=== PATIENT | male | born 1975 ===

== ENCOUNTER 2018-04-01 20:44 | Emergency (ER) | payer OTHER ==
[2018-04-01 20:55] VITALS: TEMP 98.6
[2018-04-01] MEDS ORDERED: Morphine 4 MG/ML VIAL IVP ONE (22:09)
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
[2018-04-01] MEDS ORDERED: Sodium Chloride 0.9% 50 ML IV ONE (22:33)
[2018-04-01] MEDS ORDERED: Iohexol 300 100 ML IJ ONE (22:33)
[2018-04-01 22:39] LABS: BASO % 0.3 % (0.0-2.0); EOS # 0.1 K/uL (0.0-0.7); EOS % 0.6 % (0.0-4.0); HEMOGLOBIN 14.4 g/dL (12.0-18.0); LYMPH # 0.6 K/uL (1.0-4.3); LYMPH % 5.8 % (20.0-40.0); MEAN CELL VOLUME 81.1 fl (80.0-94.0); MEAN CORPUSCULAR HGB CONC 33.3 g/dL (33.0-37.0); MEAN PLATELET VOLUME 7.7 fl (7.2-11.7); MONO # 0.6 K/uL (0.0-0.8); MONO % 5.9 % (0.0-10.0); NEUT # 9.4 K/uL (1.8-7.0); NEUT % 87.4 % (50.0-75.0); PLATELET COUNT 277 K/uL (130-400); RBC 5.32 Mil/uL (4.40-5.90); RED CELL DISTRIBUTION WIDTH 14.3 % (11.5-14.5); WHITE BLOOD COUNT 10.7 K/uL (4.8-10.8)
[2018-04-01 22:52] LABS: PROTHROMBIN TIME 11.2 Seconds (9.8-13.1)
[2018-04-01 22:54] LABS: ALB/GLOB RATIO 1.4 (1.0-2.1); ALBUMIN 4.4 g/dL (3.5-5.0); ALT/SGPT 71 U/L (21-72); AST/SGOT 89 U/L (17-59); BLOOD UREA NITROGEN 15 mg/dl (9-20); CALCIUM 9.5 mg/dL (8.4-10.2); GFR NON-AFRICAN AMERICAN > 60
[2018-04-01 22:55] LABS: PARTIAL THROMBOPLASTIN TIME 32.9 Seconds (25.6-37.1)
[2018-04-01 23:23] LABS: BANDS 2 % (0-2); LYMPHOCYTE 2 % (20-50); MONOCYTE 1 % (0-10); NEUTROPHIL 93 % (42-75); REACTIVE LYMPHOCYTES 2 % (0-0); TOTAL CELLS COUNTED 100
[2018-04-01 23:24] LABS: PLATELET ESTIMATE NORMAL (NORMAL)
[2018-04-01] MEDS ORDERED: Morphine 4 MG/ML VIAL ONE (23:37)
[2018-04-02 05:25] VITALS: BP 144/64; PULSE 72; RESP 20; O2SAT 99
--- NOTE | 2018-04-02 08:45 | RAD ---
Date of service: 04/01/2018 PROCEDURE: Radiographs of the left shoulder HISTORY: fall COMPARISON: No prior. FINDINGS: BONES: Bone alignment and mineralization are normal. There is no acute displaced fracture or bone destruction. JOINTS: The glenohumeral and acromioclavicular joints are preserved. No significant degenerative osteoarthrosis. SOFT TISSUES: Normal. OTHER FINDINGS: None. IMPRESSION: No acute displaced fracture or dislocation.
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
--- NOTE | 2018-04-02 11:08 | CT ---
Date of service: 04/01/2018 PROCEDURE: CT Cervical Spine without contrast HISTORY: fall COMPARISON: None available. TECHNIQUE: Axial computed tomography images were obtained of the cervical spine without the use of intravenous contrast. Coronal and sagittal reformatted images were created and reviewed. Radiation dose: Total exam DLP = 358.17 mGy-cm. This CT exam was performed using one or more of the following dose reduction techniques: Automated exposure control, adjustment of the mA and/or kV according to patient size, and/or use of iterative reconstruction technique. FINDINGS: VERTEBRAE: There is normal alignment of the cervical vertebral bodies. There is loss of normal cervical lordosis. Vertebral height is normal. Bone mineralization is normal. There is no acute fracture or traumatic anterior listhesis. The craniocervical junction is normal. The atlantoaxial joint is normal. DISCS/SPINAL CANAL/NEURAL FORAMINA: There is mild multilevel degenerative disc disease due to combination of disc osteophyte complexes, uncovertebral joint hypertrophy and mild multilevel facet arthropathy. No spinal canal stenosis. PARASPINAL SOFT TISSUES: No prevertebral soft tissue thickening. The paraspinous soft tissues are normal. OTHER FINDINGS: No apical pneumothorax. There is mild paraseptal emphysema in the upper lobes. IMPRESSION: No acute fracture or traumatic anterior listhesis. Straightening of the cervical spine may be positional or related to muscle spasm. A preliminary report was provided by [employer]
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
--- NOTE | 2018-04-02 18:18 | CARD ---
APPROVED REPORT Date of service: 04/01/2018 EKG Measurement Heart [id number] <Conclusion> Normal sinus rhythm Normal ECG
== END 2018-04-02 02:50 | disposition home or self-care (01) ==
LOC: H.ER 20:44
DX: R07.89 Other chest pain (principal); S49.92XA Unspecified injury of left shoulder and upper arm, initial encounter; S09.90XA Unspecified injury of head, initial encounter; M54.5 Low back pain; W11.XXXA Fall on and from ladder, initial encounter
CPT/HCPCS: 70450; 71260; 72125; 73030; 74177; 80053; 82948; 84484; 85025; 85610; 85730; 93005; 96374; 99285; J1885; J2270; Q9967